=== PATIENT | female | born 1970 | race Two or more races ===

== ENCOUNTER 2017-03-18 17:07 | Inpatient (IN) | payer OTHER ==
[2017-03-18] MEDS ORDERED: methylPREDNISolone SOD SUCC 60 MG in SODIUM CHLORIDE 0.9% 100 ML IVPB SCH (20:30)
[2017-03-18] MEDS ORDERED: FUROSEMIDE 10 MG/ML 2 ML VIAL IV ONE (20:45)
[2017-03-18 21:00] LABS: Anion Gap 8 mmol/L; Blood Urea Nitrogen 9 mg/dL (7-17); Calcium 8.2 mg/dL (8.4-10.2); Carbon Dioxide 23 mmol/L (22-30); Chloride 104 mmol/L (98-107); Glucose 227 mg/dL (74-99); Non-African American GFR(MDRD) >60 (>60 ml/min/1.73 sqM); Potassium 3.8 mmol/L (3.5-5.1); Sodium 135 mmol/L (137-145)
[2017-03-18] MEDS: BUDESONIDE 0.5 MG/2 ML NEBU INHALATION SCH (21:04)
[2017-03-18 21:15] LABS: Basophils % (A) 0 %; CH 27.6; CHCM 32.8; Eosinophils % (A) 0 %; HCT 32.4 % (34.0-46.0); HDW 2.66; HGB 10.7 gm/dL (11.4-16.0); Luc # (Auto) 0.16; Luc % (Auto) 2; Lymphocytes # (A) 1.2 k/uL (1.0-4.8); Lymphocytes % (A) 16 %; MCH 27.8 pg (25.0-35.0); MCHC 32.9 g/dL (31.0-37.0); MCV 84.5 fL (80.0-100.0); Mean Platelet Volume 6.8; Monocytes # (A) 0.5 k/uL (0-1.0); Monocytes % (A) 6 %; Neutrophils # (A) 5.8 k/uL (1.3-7.7); Neutrophils % (A) 75 %; RBC 3.83 m/uL (3.80-5.40); RDW 13.7 % (11.5-15.5); WBC 7.7 k/uL (3.8-10.6)
[2017-03-18] MEDS: HEPARIN SODIUM,PORCINE 5,000 UNIT/ML 1 ML VIAL SQ SCH (21:27)
[2017-03-18] MEDS: methylPREDNISolone SOD SUCCI 125 MG/2 ML VIAL IV SCH ×2 (21:28→23:47)
[2017-03-18] MEDS: PANTOPRAZOLE 40 MG/10 ML VIAL IVP SCH (21:28)
--- NOTE | 2017-03-18 21:32 | XR ---
EXAMINATION TYPE: XR chest 1V portable DATE OF EXAM: 03/18/2017 COMPARISON: NONE HISTORY: Short of breath TECHNIQUE: Single frontal view of the chest is obtained. FINDINGS: There is bilateral extensive pulmonary alveolar edema. Trachea is midline. There is no sig n of a pneumothorax. I see no definite pleural effusion. IMPRESSION: Severe pulmonary edema that could relate to acute heart failure or RDS.
[2017-03-18] MEDS ORDERED: FUROSEMIDE 10 MG/ML 2 ML VIAL IV STA (22:27)
[2017-03-18 22:54] LABS: Creatine Kinase 31 U/L (30-135)
[2017-03-18 23:05] LABS: Creatine Kinase MB <0.2 ng/mL (0.0-2.4); Troponin I <0.012 ng/mL (0.000-0.034)
[2017-03-18] MEDS: ACETAMINOPHEN TAB 325 MG TAB PO PRN (23:28)
[2017-03-18] MEDS: AZITHROMYCIN 500 MG in SODIUM CHLORIDE 0.9% 250 ML IVPB SCH (23:28)
[2017-03-19 05:39] LABS: Glucose,Whole Blood 234 mg/dL (75-99)
[2017-03-19] MEDS: methylPREDNISolone SOD SUCCI 125 MG/2 ML VIAL IV SCH ×2 (05:56→12:17)
[2017-03-19 06:43] LABS: Basophils % (A) 0 %; CH 28.3; Eosinophils % (A) 0 %; HCT 35.3 % (34.0-46.0); HDW 2.65; HGB 11.6 gm/dL (11.4-16.0); Luc # (Auto) 0.04; Luc % (Auto) 1; Lymphocytes # (A) 0.5 k/uL (1.0-4.8); Lymphocytes % (A) 8 %; MCH 28.2 pg (25.0-35.0); MCHC 32.8 g/dL (31.0-37.0); MCV 85.9 fL (80.0-100.0); Mean Platelet Volume 7.6; Monocytes # (A) 0.1 k/uL (0-1.0); Monocytes % (A) 2 %; Neutrophils # (A) 6.1 k/uL (1.3-7.7); Neutrophils % (A) 90 %; RDW 14.5 % (11.5-15.5); WBC 6.8 k/uL (3.8-10.6); WBC (Perox) 7.28
[2017-03-19 06:55] LABS: Anion Gap 13 mmol/L; Blood Urea Nitrogen 13 mg/dL (7-17); Calcium 8.8 mg/dL (8.4-10.2); Carbon Dioxide 24 mmol/L (22-30); Chloride 104 mmol/L (98-107); Glucose 220 mg/dL (74-99); Non-African American GFR(MDRD) >60 (>60 ml/min/1.73 sqM); Potassium 3.8 mmol/L (3.5-5.1); Sodium 141 mmol/L (137-145)
[2017-03-19 07:32] LABS: Glucose,Whole Blood 219 mg/dL (75-99)
[2017-03-19 07:46] LABS: Glucose,Whole Blood 233 mg/dL (75-99)
--- NOTE | 2017-03-19 08:12 | XR ---
EXAMINATION TYPE: XR chest 2V DATE OF EXAM: 03/19/2017 COMPARISON: Prior chest x-ray 03/18/2017 HISTORY: Pulmonary edema TECHNIQUE: Frontal and lateral views of the chest are obtained. FINDINGS: Mixed interstitial and airspace disease is present within the lungs, some improvement in c onsolidation seen in the right upper lobe. Heart may be enlarged although patient is rotated which ma y accentuate the appearance. There is overlying cardiac leads. No evident pneumothorax or sizable eff usion. IMPRESSION: There may be some improvement in patient's airspace disease.
[2017-03-19] MEDS ORDERED: PANTOPRAZOLE 40 MG/10 ML VIAL IVP SCH (09:00)
[2017-03-19] MEDS: IPRATROPIUM-ALBUTEROL 3 ML NEB INHALATION PRN ×2 (09:21→20:51)
[2017-03-19] MEDS: BUDESONIDE 0.5 MG/2 ML NEBU INHALATION SCH (09:23)
[2017-03-19] MEDS: diphenhydrAMINE 50 MG/ML 1 ML VIAL IVP PRN (11:33)
[2017-03-19] MEDS ORDERED: INSPUCOR MISCELLANE PRN (11:51)
[2017-03-19] MEDS ORDERED: INSULIN PUMP BASAL RATES 1 EACH MISC MISCELLANE PRN (11:51)
[2017-03-19] MEDS ORDERED: INSULIN LISPRO (humaLOG) 300 UNIT/3 ML VIAL SQ PRN (11:51)
[2017-03-19] MEDS ORDERED: INSULIN PUMP ACTIVE INSULIN 1 EACH MISC MISCELLANE PRN (11:51)
[2017-03-19] MEDS ORDERED: INSULIN PUMP TARGET GLUCOSE 1 EACH MISC MISCELLANE PRN (11:51)
[2017-03-19] MEDS: cefTRIAXone 2,000 MG in SODIUM CHLORIDE 0.9% 100 ML IVPB SCH (11:53)
[2017-03-19] MEDS: HEPARIN SODIUM,PORCINE 5,000 UNIT/ML 1 ML VIAL SQ SCH ×2 (11:53→20:32)
[2017-03-19] MEDS: DOCUSATE 100 MG CAP PO SCH ×2 (11:53→20:32)
[2017-03-19 11:57] LABS: Glucose,Whole Blood 320 mg/dL (75-99)
[2017-03-19] MEDS: PANTOPRAZOLE 40 MG/10 ML VIAL IVP SCH (12:17)
[2017-03-19] MEDS: POLYETHYLENE GLYCOL 3350 17 GM POWD.PACK PO SCH (12:17)
[2017-03-19] MEDS ORDERED: INSULIN REGULAR BOLUS (FROM DRIP BAG) IV ONE (12:20)
[2017-03-19] MEDS ORDERED: INSULIN PUMP MEAL BOLUS 1 UNIT MISC MISCELLANE SCH (12:30)
[2017-03-19 13:12] LABS: Hemoglobin A1C 7.3 % (4.2-6.1)
[2017-03-19 13:24] VITALS: BMI 36.9
[2017-03-19] MEDS: INSULIN REGULAR 100 UNIT in SODIUM CHLORIDE 0.9% 100 ML IV SCH ×2 (14:16→20:37)
[2017-03-19] MEDS: INSULIN LISPRO (humaLOG) 300 UNIT/3 ML VIAL SQ SCH ×2 (14:18→17:56)
--- NOTE | 2017-03-19 14:21 | US ---
EXAMINATION TYPE: US venous doppler duplex LE BI DATE OF EXAM: 03/19/2017 1:55 PM COMPARISON: NONE CLINICAL HISTORY: R/O DVT; Pneumonia SIDE PERFORMED: Bilateral TECHNIQUE: The lower extremity deep venous system is examined utilizing real time linear array sonog deidra with graded compression, doppler sonography and color-flow sonography. VESSELS IMAGED: Common Femoral Vein Deep Femoral Vein Greater Saphenous Vein * Femoral Vein Popliteal Vein Small Saphenous Vein * Proximal Calf Veins (* superficial vessels) Right Leg: Negative for DVT Left Leg: Negative for DVT IMPRESSION: Grayscale, color doppler, spectral doppler imaging performed of the deep veins of the lo wer extremities. There is normal flow, compressibility, vascular waveforms bilaterally. No evident deep venous arthrosis at or above the knees.
--- NOTE | 2017-03-19 14:23 | P.CNPUL ---
History of Present Illness Consult date: 03/19/17 Requesting physician: Yaya Colindres Reason for consult: dyspnea, abnormal CXR/CT Chief complaint: Shortness of breath, cough, fatigue History of present illness: This is a very pleasant 46-year-old female patient who follows with Micaela Proctor, nurse practitioner with Dr. Mar as her primary healthcare provider. She has a history of obstructive sleep apnea utilizing CPAP, diabetes mellitus, hyperlipidemia, depression. On 03/15/2017 she had undergone a uterine ablation. After that she had not felt hot quite back to normal. She thought it was due to the procedure. She states then developed increasing shortness of breath cough and congestion. She was quite fatigued and weak. She developed chills as well. She presented to [facility] for the same. She was subsequent transferred here yesterday with continued symptoms. Her chest x- ray showed bilateral infiltrates. She was trialed with Lasix without significant improvement. In consultation today she states she did have symptoms similar to suspected aspiration pneumonia. Her proBNP was 400 no prior history of heart disease. Troponin negative. She has been treated with ceftriaxone and azithromycin. No leukocytosis. Currently afebrile. She is seen today in consultation on the selective care unit. She was transferred up here from the regular medical floor last evening. She was quite dyspneic on minimal exertion, even with conversation. She is requiring 6 L of high flow nasal cannula to maintain O2 saturations in the 90s. Review of Systems 14 point review of system was conducted. All negative other than as mentioned in the HPI. 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 past broken leg -cno sx-casted only, uterine fibroids, calcifications in rt breast-had sx -stated has a marker in place. History of Any Multi-Drug Resistant Organisms: None Reported Past Surgical History: Ablation, Tubal Ligation Additional Past Surgical History / Comment(s): uterine ablation, rt knee sx for cyst, rt breast sx for calcification-has marker Past Anesthesia/Blood Transfusion Reactions: No Reported Reaction Past Psychological History: Depression Additional Psychological History / Comment(s): pt stated she is being treated for depression-takes cymbalta. "feels well maintained be her meds". pt is independant. lives with her spouse in 2 story home that has 3 porch steps. pets : 1 cat. no outside services recieved. 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 Smoking Status: Never smoker Past Alcohol Use History: None Reported Past Drug Use History: None Reported - Past Family History Father Family Medical History: CVA/TIA Additional Family Medical History / Comment(s): djd Mother Family Medical History: Cancer, Congestive Heart Failure (CHF), COPD, Coronary Artery Disease (CAD) Additional Family Medical History / Comment(s): breast cancer-lynn masectomy Medications and Allergies Home Medications Medication Instructions Recorded Confirmed Type Atorvastatin Calcium [Lipitor] 10 mg PO DAILY 03/18/17 03/18/17 History Cyanocobalamin [Vitamin B-12] 500 mcg PO HS 03/18/17 03/18/17 History DULoxetine HCL [Cymbalta] 60 mg PO DAILY 03/18/17 03/18/17 History Ibuprofen [Motrin] 400 mg PO Q4H PRN 03/18/17 03/18/17 History Insulin Glulisine (For Pump) 0.01 units SQ-PUMP CONTINUOUS 03/18/17 03/18/17 History [Apidra (For Pump)] Melatonin 6 mg PO HS 03/18/17 03/18/17 History Allergies Allergy/AdvReac Type Severity Reaction Status Date / Time cephalexin [From Keflex] Allergy Swelling Verified 03/18/17 20:24 ciprofloxacin [From Cipro] Allergy Rash/Hives Verified 03/18/17 20:24 clindamycin Allergy Swelling Verified 03/18/17 20:24 floxacillin Allergy Rash/Hives Verified 03/18/17 20:24 Influenza Virus Vaccines Allergy Dyspnea Verified 03/18/17 20:24 lomefloxacin [From Maxaquin] Allergy Rash/Hives Verified 03/18/17 20:24 Penicillins Allergy Swelling Verified 03/18/17 20:24 vancomycin Allergy Rash/Hives Verified 03/18/17 20:24 hydromorphone [From Dilaudid] AdvReac migraine Verified 03/18/17 20:24 Physical Exam Vitals: Vital Signs Temp Pulse Pulse Resp BP Pulse Ox 03/19/17 09:39 70 03/19/17 09:26 66 03/19/17 08:33 97 F L 90 16 120/73 95 03/19/17 04:00 97.5 F L 80 16 115/68 93 L 03/19/17 00:00 96.8 F L 89 20 121/76 03/18/17 23:00 97.4 F L 98 16 126/67 95 03/18/17 21:00 16 03/18/17 19:30 99.3 F 99 16 122/64 89 L Intake and Output 03/18/17 03/19/17 03/19/17 22:59 06:59 14:59 Intake Total 250 236 Output Total 1000 Balance -750 236 Intake: Intake, IV Titration 250 Amount Azithromycin 500 mg In 250 Sodium Chloride 0.9% 250 ml @ 125 mls/hr IVPB Q[facility]H [facility] Rx#:[id number] Oral 236 Output: Urine 1000 Other: Voiding Method Toilet Bedside Commode # Voids 1 Weight 103.5 kg 100.8 kg 100.8 kg Patient Weight 03/20/17 06:59 Weight 100.8 kg GENERAL EXAM: Alert, fairly comfortable in no apparent distress. HEAD: Normocephalic. EYES: Normal reaction of pupils, equal size. NOSE: Clear with pink turbinates. THROAT: There is crowding the posterior pharynx. No erythema or exudates. NECK: Short. No masses, no JVD. CHEST: No chest wall deformity. LUNGS: Equal air entry with few scattered rhonchi, crackles in the bases.. CVS: S1 and S2 normal with no audible murmurs, regular rhythm. ABDOMEN: No hepatosplenomegaly, normal bowel sounds, no guarding or rigidity. SPINE: No scoliosis or deformity SKIN: No rashes CENTRAL NERVOUS SYSTEM: No focal deficits, tone is normal in all 4 extremities. Extremities: There is no peripheral edema. No clubbing, no cyanosis. Peripheral pulses are intact. Results - Laboratory Findings CBC and BMP: 03/19/17 06:22 03/19/17 06:22 Abnormal lab findings: Abnormal Labs 03/18/17 03/18/17 03/18/17 19:53 20:30 20:30 Hgb 10.7 L Hct 32.4 L Lymphocytes # Sodium 135 L Glucose 227 H POC Glucose (mg/dL) 233 H Hemoglobin A1c Calcium 8.2 L 03/19/17 03/19/17 03/19/17 05:38 06:22 06:22 Hgb Hct Lymphocytes # 0.5 L Sodium Glucose 220 H POC Glucose (mg/dL) 234 H Hemoglobin A1c Calcium 03/19/17 03/19/17 03/19/17 06:22 07:30 11:56 Hgb Hct Lymphocytes # Sodium Glucose POC Glucose (mg/dL) 219 H 320 H Hemoglobin A1c 7.3 H Calcium - Diagnostic Findings Chest x-ray: image reviewed Assessment and Plan Plan: Impression: #1 Aspiration pneumonia suspected following recent procedure with anesthesia. #2 Acute hypoxic respiratory failure secondary to above. #3 Obstructive sleep apnea utilizing CPAP. #4 Hyperlipidemia. #5 Diabetes mellitus. #6 History of depression. Plan: The patient was seen and evaluated by Dr. Abreu. Her chest x-ray and labs were reviewed. We do feel this is mostly in abnormalities of possible aspiration pneumonia versus congestive heart failure. She remains on antibiotics in the form of ceftriaxone and azithromycin. We will continue with bronchodilators and Pulmicort inhalations. She remains on IV Solu-Medrol. We'll continue with heparin for DVT prophylaxis and Protonix for GI prophylaxis. We will continue to follow and make further recommendations based on her clinical status. Time with Patient: Greater than 30
[2017-03-19 14:30] LABS: Glucose,Whole Blood 433 mg/dL (75-99)
[2017-03-19 15:17] LABS: Glucose,Whole Blood 434 mg/dL (75-99)
[2017-03-19 15:53] LABS: Glucose,Whole Blood 327 mg/dL (75-99)
[2017-03-19 16:43] LABS: Glucose,Whole Blood 232 mg/dL (75-99)
[2017-03-19 16:43] LABS: Glucose,Whole Blood 251 mg/dL (75-99)
[2017-03-19] MEDS: methylPREDNISolone SOD SUCCI 40 MG/ML 1 ML VIAL IV SCH ×2 (17:57→23:09)
[2017-03-19 18:14] LABS: Glucose,Whole Blood 157 mg/dL (75-99)
[2017-03-19 20:08] LABS: Glucose,Whole Blood 159 mg/dL (75-99)
[2017-03-19] MEDS: MELATONIN 3 MG TABLET PO SCH (20:32)
[2017-03-19] MEDS: CYANOCOBALAMIN 500 MCG TAB PO SCH (20:32)
[2017-03-19] MEDS: ACETAMINOPHEN TAB 325 MG TAB PO PRN (20:36)
[2017-03-19] MEDS: FORMOTEROL FUMARATE 20 MCG/2 ML NEBU INHALATION SCH (20:50)
[2017-03-19] MEDS: BUDESONIDE 1 MG/2 ML NEBU INHALATION SCH (20:51)
[2017-03-19 21:59] LABS: Glucose,Whole Blood 135 mg/dL (75-99)
[2017-03-19] MEDS: AZITHROMYCIN 500 MG in SODIUM CHLORIDE 0.9% 250 ML IVPB SCH (23:08)
[2017-03-20 00:23] LABS: Glucose,Whole Blood 211 mg/dL (75-99)
[2017-03-20] MEDS: ACETAMINOPHEN TAB 325 MG TAB PO PRN (01:36)
[2017-03-20 02:12] LABS: Glucose,Whole Blood 200 mg/dL (75-99)
[2017-03-20 04:19] LABS: Glucose,Whole Blood 173 mg/dL (75-99)
[2017-03-20 06:18] LABS: Basophils % (A) 0 %; CH 28.3; CHCM 32.9; Eosinophils % (A) 0 %; HCT 32.3 % (34.0-46.0); HDW 2.71; HGB 10.5 gm/dL (11.4-16.0); Luc # (Auto) 0.14; Luc % (Auto) 1; Lymphocytes # (A) 1.1 k/uL (1.0-4.8); Lymphocytes % (A) 9 %; MCHC 32.5 g/dL (31.0-37.0); MCV 86.3 fL (80.0-100.0); Monocytes # (A) 0.4 k/uL (0-1.0); Monocytes % (A) 4 %; Neutrophils # (A) 10.2 k/uL (1.3-7.7); Neutrophils % (A) 86 %; RBC 3.75 m/uL (3.80-5.40); RDW 14.4 % (11.5-15.5); WBC 11.9 k/uL (3.8-10.6); WBC (Perox) 12.23
[2017-03-20] MEDS: methylPREDNISolone SOD SUCCI 40 MG/ML 1 ML VIAL IV SCH ×3 (06:23→17:24)
[2017-03-20 06:30] LABS: Anion Gap 9 mmol/L; Blood Urea Nitrogen 19 mg/dL (7-17); Calcium 8.6 mg/dL (8.4-10.2); Carbon Dioxide 27 mmol/L (22-30); Chloride 105 mmol/L (98-107); Glucose 164 mg/dL (74-99); Non-African American GFR(MDRD) >60 (>60 ml/min/1.73 sqM); Potassium 3.9 mmol/L (3.5-5.1); Sodium 141 mmol/L (137-145)
[2017-03-20 06:40] LABS: Glucose,Whole Blood 155 mg/dL (75-99)
[2017-03-20] MEDS: PANTOPRAZOLE 40 MG TABLET PO SCH (07:07)
[2017-03-20] MEDS: INSULIN LISPRO (humaLOG) 300 UNIT/3 ML VIAL SQ SCH ×3 (07:07→17:24)
[2017-03-20 08:10] LABS: Glucose,Whole Blood 295 mg/dL (75-99)
[2017-03-20] MEDS: ATORVASTATIN 10 MG TAB PO SCH (08:13)
[2017-03-20] MEDS: DULoxetine HCL 60 MG CAPSULE.DR PO SCH (08:13)
[2017-03-20] MEDS: HEPARIN SODIUM,PORCINE 5,000 UNIT/ML 1 ML VIAL SQ SCH ×2 (08:13→21:37)
[2017-03-20] MEDS: DOCUSATE 100 MG CAP PO SCH ×2 (08:13→21:37)
[2017-03-20] MEDS: POLYETHYLENE GLYCOL 3350 17 GM POWD.PACK PO SCH (08:13)
[2017-03-20] MEDS: cefTRIAXone 2,000 MG in SODIUM CHLORIDE 0.9% 100 ML IVPB SCH (08:21)
[2017-03-20] MEDS: FORMOTEROL FUMARATE 20 MCG/2 ML NEBU INHALATION SCH ×2 (09:00→19:22)
[2017-03-20] MEDS: BUDESONIDE 1 MG/2 ML NEBU INHALATION SCH ×2 (09:00→19:22)
[2017-03-20] MEDS: IPRATROPIUM-ALBUTEROL 3 ML NEB INHALATION PRN ×4 (09:00→19:22)
[2017-03-20 10:10] LABS: Glucose,Whole Blood 249 mg/dL (75-99)
[2017-03-20 12:04] LABS: Glucose,Whole Blood 183 mg/dL (75-99)
--- NOTE | 2017-03-20 13:04 | HP ---
DATE OF ADMISSION: 03/19/17 CHIEF COMPLAINT: Shortness of breath and cough and tiredness. HISTORY OF PRESENT ILLNESS: This 46-year-old woman with past medical history of diabetes, hypertension, hyperlipidemia, history of sleep apnea, history of heartburn, history of uterine ablation, history of depression, the patient had uterine ablation in [place] and two days later the patient started to have cough and sputum. The patient had increasing shortness of breath. The patient went to [facility] and because of lack of improvement and suspicion of ARDS the patient was transferred to [facility] for further evaluation and treatment. There is no history of fever, rigors, chills. No history of headache, loss of consciousness or seizures. NT proBNP was done which showed it was 436. Chest x-ray showed evidence of pneumonia versus CHF. The patient was admitted to the hospital for further evaluation and treatment. Venous Doppler showed normal flow. Past medical history of diabetes, hypertension, hyperlipidemia, history of sleep apnea, history of ablation, history of depression. Medications prior to admission are: Home medications are: 1. Melatonin 6 mg q.h.s. 2. Insulin pump with Epidra. 3. Motrin 400 mg. 4. Cymbalta. 5. Vitamin B 500 mcg. 6. Lipitor 10 mg po daily. ALLERGIES: CEFLEXIN, CLINDAMYCIN, FLOXACIN, INFLUENZA VIRUS VACCINE, PENICILLIN, VANCOMYCIN, DILAUDID. FAMILY HISTORY: History of CVA/TIA and DJD in the family. SOCIAL HISTORY: No history of smoking and no history of alcohol intake. REVIEW OF SYSTEMS: HEENT: No diminished vision. No diminished hearing. Cardiovascular system: No angina or palpitations. Respiratory: No cough or hemoptysis. GI: No nausea or vomiting. : No dysuria. Nervous system: No numbness or weakness. Allergy/Immunology: No asthma or hayfever. Musculoskeletal: As mentioned earlier. Hematology/oncology: No history of anemia. Endocrine: No history of diabetes or hypothyroidism. Constitutional : As mentioned earlier. Dermatology: Negative. Rheumatology: Negative. Psychiatry: As mentioned earlier. PHYSICAL EXAMINATION: Alert and oriented times three. Pulse 94. Blood pressure 119/67. Respiratory rate 12, temperature 97.7. Pulse ox 94% on 2 L. HEENT: Conjunctivae normal. NECK: No JVD. Cardiovascular: S1, S2 normal. Respiratory: Breath sounds diminished at the bases. Scattered rhonchi and expiratory wheezing. Crackles. Abdomen is soft. Nontender. No mass palpable. Legs: No edema. No swelling. Nervous system: Higher functions as mentioned earlier. Moves all four limbs. No focal deficits. Lymphatics: No lymph nodes palpable in the neck, axillae and groin. SKIN: No ulcer, rash or bleeding. LABS: WBC 6.8, hemoglobin 11.7. Sodium 140. Potassium 3.8. ASSESSMENT: 1. Bilateral pneumonia, possible aspiration. 2. Rule out congestive heart failure. 3. Acute hypoxic respiratory failure. 4. History of obstructive sleep apnea. 5. History of recent uterine ablation. 6. Diabetes, on insulin pump. 7. Hyperlipidemia. 8. History of depression. 9. Obesity, body mass index 37. RECOMMENDATIONS AND DISCUSSION: In this 46 -year-old woman who presented with multiple complex medical issues, we will monitor the patient closely. Continue current medications. Continue symptomatic treatment. Otherwise, at this time, I recommend broad spectrum IV antibiotics. Bronchodilators. I would also recommend pulmonary consultation. DVT prophylaxis. Guarded prognosis. Further recommendations to follow. IV steroids also initiated. Continue with insulin IV drip. MTDD
[2017-03-20 14:36] LABS: Glucose,Whole Blood 270 mg/dL (75-99)
[2017-03-20 16:58] LABS: Glucose,Whole Blood 215 mg/dL (75-99)
[2017-03-20 18:24] LABS: Glucose,Whole Blood 319 mg/dL (75-99)
[2017-03-20] MEDS: INSULIN REGULAR 100 UNIT in SODIUM CHLORIDE 0.9% 100 ML IV SCH (18:27)
[2017-03-20 20:43] LABS: Glucose,Whole Blood 246 mg/dL (75-99)
--- NOTE | 2017-03-20 20:58 | PN ---
This is a very pleasant 46-year-old female we saw yesterday with a diagnosis of probable aspiration pneumonia following a procedure utilizing conscious sedation. Acute hypoxemic respiratory failure, sleep apnea syndrome, hyperlipidemia, diabetes and depression. The patient is doing much better today , feeling much better. Her breathing is much improved. Starting to mobilize mucous and phlegm. Temperature is 98, heart rate 84. Respiratory rate 20. Blood pressure 125/60. Mean 81. Room air saturation 91%. On a couple of L she is 96%. Looks much more comfortable today. HEENT examination is grossly unremarkable. Mucous membranes are moist. No oral lesions. Neck is supple. Full range of motion. No adenopathy or thyromegaly. Neck veins are flat. Cardiovascular examination reveals regular rhythm and rate. Heart rate 80. No murmur. Lungs reveal coarse rhonchi. Breath sounds are diminished. A few crackles noted. No wheezes. Abdomen is soft. Bowel sounds are heard. Extremities are intact. No cyanosis, clubbing or edema. Skin without rash. Lab data is reviewed. White count 11.9. Hemoglobin 10.5. Hematocrit 32.3. Platelet count 379,000. Sodium, and potassium, chloride, CO2 all normal. BUN and creatinine were 19 and 0.7. NT-pro-BNP was normal. Microbiology currently is pending or negative. Chest x-ray was seen on the fourth. It has not been repeated. We will repeat it tomorrow morning. All medications are reviewed. ASSESSMENT: 1. Probable aspiration pneumonia following a surgical procedure where the patient had unconscious sedation and general anesthesia. 2. Acute hypoxemic respiratory failure, improved. 3. Sleep apnea syndrome, currently on CPAP. 4. History of hyperlipidemia. 5. History of diabetes. 6. History of depression. PLAN: Plan on doing a chest x-ray in the morning. Medications are reviewed. Everything seems appropriate. No additional recommendations are made. Prognosis is guarded. MTDD
[2017-03-20] MEDS: CYANOCOBALAMIN 500 MCG TAB PO SCH (21:37)
[2017-03-20] MEDS: MELATONIN 3 MG TABLET PO SCH (21:37)
[2017-03-20] MEDS: AZITHROMYCIN 500 MG TAB PO SCH (21:49)
[2017-03-20 22:30] LABS: Glucose,Whole Blood 160 mg/dL (75-99)
[2017-03-21 00:48] LABS: Glucose,Whole Blood 166 mg/dL (75-99)
[2017-03-21] MEDS: methylPREDNISolone SOD SUCCI 40 MG/ML 1 ML VIAL IV SCH ×2 (01:24→06:57)
[2017-03-21 02:55] LABS: Glucose,Whole Blood 151 mg/dL (75-99)
[2017-03-21 04:55] LABS: Glucose,Whole Blood 167 mg/dL (75-99)
[2017-03-21 06:31] LABS: Basophils % (A) 0 %; CH 27.6; CHCM 32.5; Eosinophils % (A) 0 %; HCT 33.5 % (34.0-46.0); HDW 2.76; HGB 10.8 gm/dL (11.4-16.0); Luc # (Auto) 0.11; Luc % (Auto) 1; Lymphocytes # (A) 1.2 k/uL (1.0-4.8); Lymphocytes % (A) 11 %; MCH 27.6 pg (25.0-35.0); MCHC 32.3 g/dL (31.0-37.0); MCV 85.4 fL (80.0-100.0); Mean Platelet Volume 7.4; Monocytes # (A) 0.4 k/uL (0-1.0); Monocytes % (A) 4 %; Neutrophils # (A) 8.6 k/uL (1.3-7.7); Neutrophils % (A) 84 %; RBC 3.92 m/uL (3.80-5.40); RDW 13.7 % (11.5-15.5); WBC 10.3 k/uL (3.8-10.6); WBC (Perox) 10.79
[2017-03-21 06:34] LABS: Glucose,Whole Blood 166 mg/dL (75-99)
[2017-03-21 06:51] LABS: Anion Gap 7 mmol/L; Blood Urea Nitrogen 18 mg/dL (7-17); Calcium 8.8 mg/dL (8.4-10.2); Carbon Dioxide 25 mmol/L (22-30); Chloride 106 mmol/L (98-107); Glucose 149 mg/dL (74-99); Non-African American GFR(MDRD) >60 (>60 ml/min/1.73 sqM); Potassium 4.3 mmol/L (3.5-5.1); Sodium 138 mmol/L (137-145)
--- NOTE | 2017-03-21 06:58 | XR ---
EXAMINATION TYPE: XR chest 2V DATE OF EXAM: 03/21/2017 HISTORY: pneumonia. REFERENCE: Previous study dated 03/19/2017. FINDINGS: The heart is mildly enlarged. There is vascular congestion. There is improving edema. There are small, bilateral effusions. IMPRESSION: IMPROVING CHANGES OF CONGESTIVE HEART FAILURE.
[2017-03-21] MEDS: INSULIN LISPRO (humaLOG) 300 UNIT/3 ML VIAL SQ SCH ×3 (07:07→17:27)
[2017-03-21] MEDS: PANTOPRAZOLE 40 MG TABLET PO SCH (07:07)
[2017-03-21 08:04] LABS: Glucose,Whole Blood 199 mg/dL (75-99)
[2017-03-21] MEDS: cefTRIAXone 2,000 MG in SODIUM CHLORIDE 0.9% 100 ML IVPB SCH (08:10)
[2017-03-21] MEDS: POLYETHYLENE GLYCOL 3350 17 GM POWD.PACK PO SCH (08:10)
[2017-03-21] MEDS: DULoxetine HCL 60 MG CAPSULE.DR PO SCH (08:10)
[2017-03-21] MEDS: HEPARIN SODIUM,PORCINE 5,000 UNIT/ML 1 ML VIAL SQ SCH ×2 (08:10→21:39)
[2017-03-21] MEDS: DOCUSATE 100 MG CAP PO SCH ×2 (08:10→21:39)
[2017-03-21] MEDS: ATORVASTATIN 10 MG TAB PO SCH (08:10)
[2017-03-21] MEDS: FORMOTEROL FUMARATE 20 MCG/2 ML NEBU INHALATION SCH (08:15)
[2017-03-21] MEDS: BUDESONIDE 1 MG/2 ML NEBU INHALATION SCH (08:15)
[2017-03-21] MEDS: diphenhydrAMINE 50 MG/ML 1 ML VIAL IVP PRN (08:19)
--- NOTE | 2017-03-21 09:31 | PN ---
DATE OF SERVICE: 03/20/2017 This 46-year-old woman was admitted with bilateral pneumonia. Thought to have either gram negative or aspiration pneumonia. The patient had recent uterine ablation elsewhere. The patient is on broad spectrum IV antibiotics. The patient is feeling slightly better today. The 2D echo final report is pending at this time. Otherwise, the BNP is only 436. Troponins are negative. The blood sugar is elevated. PAST MEDICAL HISTORY: Reviewed. REVIEW OF SYSTEMS: CARDIOVASCULAR: No angina. RESPIRATORY: As mentioned earlier. GI: No nausea. : As mentioned earlier. NERVOUS SYSTEM: No numbness or weakness. Current medications reviewed and include: 1. Tylenol 650 q6h p.r.n. 2. DuoNeb q.i.d. 3. Lipitor 10 mg a day. 4. Zithromax 250 mg a day. 5. Pulmicort 1 mg b.i.d. 6. Rocephin 1 gm a day. 7. Vitamin B12 ( ). 8. ( ) 9. Colace 100 mg. 10. Cymbalta 60 mg a day. 11. Perforomist 20 mcg b.i.d. 12. Heparin. 13. Melatonin. 14. Solu-Medrol 40 IV q6. 15. Protonix 40 mg a day. 16. MiraLAX. PHYSICAL EXAMINATION: The patient is alert and oriented x3. Pulse is 80, blood pressure 120/60, respirations 20, temperature 98 degrees, pulse ox 92% on room air. HEENT: Conjunctivae normal. NECK: No JVD. CARDIOVASCULAR: S1/S2. RESPIRATORY: Diminished breath sounds especially in the bases. A few scattered rhonchi and crackles. ABDOMEN: Soft, obese, nontender. LEGS: No edema. NERVOUS SYSTEM: Higher functions as mentioned. Moves all four limbs. No focal deficits. LYMPHATICS: No lymph node in neck or axillae. SKIN: No rash. LABS: WBC 11.8, hemoglobin 10.5. Glucose 270. ASSESSMENT: 1. Bilateral pneumonia, possible aspiration. 2. Acute hypoxic respiratory failure present on admission. 3. History of sleep apnea. 4. History of recent uterine ablation. 5. Diabetes mellitus type 2, was on insulin pump, now insulin drip. 6. Hyperlipidemia. 7. History of depression. 8. Obesity with body mass index of 37. RECOMMENDATIONS AND DISCUSSION: Recommend to continue current medication, continue to monitor, continue symptomatic treatment. Continue with broad spectrum IV antibiotics and bronchodilators. Monitor blood sugars closely. Closely follow with pulmonary. Guarded prognosis because of multiple complex medical issues. Further recommendations to follow. MTDD
[2017-03-21 10:27] LABS: Glucose,Whole Blood 219 mg/dL (75-99)
[2017-03-21] MEDS: IPRATROPIUM-ALBUTEROL 3 ML NEB INHALATION PRN ×2 (11:51→16:05)
[2017-03-21 12:24] LABS: Glucose,Whole Blood 168 mg/dL (75-99)
[2017-03-21 14:51] LABS: Glucose,Whole Blood 292 mg/dL (75-99)
[2017-03-21 16:05] LABS: Glucose,Whole Blood 207 mg/dL (75-99)
[2017-03-21] MEDS: INSULIN REGULAR 100 UNIT in SODIUM CHLORIDE 0.9% 100 ML IV SCH (16:10)
[2017-03-21 18:24] LABS: Glucose,Whole Blood 184 mg/dL (75-99)
[2017-03-21] MEDS: SYMBICORT 160-4.5 MCG INHALER INHALATION SCH (19:17)
[2017-03-21 20:17] LABS: Glucose,Whole Blood 231 mg/dL (75-99)
[2017-03-21] MEDS: CYANOCOBALAMIN 500 MCG TAB PO SCH (21:39)
[2017-03-21] MEDS: AZITHROMYCIN 500 MG TAB PO SCH (21:39)
[2017-03-21] MEDS: MELATONIN 3 MG TABLET PO SCH (21:39)
[2017-03-21] MEDS ORDERED: INSULIN LISPRO (humaLOG) 300 UNIT/3 ML VIAL SQ PRN (22:04)
[2017-03-21] MEDS ORDERED: INSPUCOR MISCELLANE PRN (22:04)
[2017-03-21] MEDS ORDERED: INSULIN PUMP BASAL RATES 1 EACH MISC MISCELLANE PRN (22:04)
[2017-03-21 22:13] LABS: Glucose,Whole Blood 109 mg/dL (75-99)
[2017-03-22 02:09] LABS: Glucose,Whole Blood 94 mg/dL (75-99)
[2017-03-22 03:09] VITALS: TEMP 97.4
[2017-03-22 05:52] LABS: Glucose,Whole Blood 66 mg/dL (75-99)
[2017-03-22] MEDS: PANTOPRAZOLE 40 MG TABLET PO SCH (06:43)
[2017-03-22 06:47] LABS: Glucose,Whole Blood 108 mg/dL (75-99)
[2017-03-22 06:55] LABS: HCT 35.5 % (34.0-46.0); HGB 11.5 gm/dL (11.4-16.0); MCV 85.7 fL (80.0-100.0); RBC 4.15 m/uL (3.80-5.40); WBC 10.5 k/uL (3.8-10.6); WBC (Perox) 10.91
[2017-03-22 06:56] LABS: Basophils # (A) 0.1 k/uL (0-0.2); Basophils % (A) 1 %; CH 27.6; CHCM 32.4; Eosinophils # (A) 0.1 k/uL (0-0.7); Eosinophils % (A) 1 %; HDW 2.72; Luc # (Auto) 0.18; Luc % (Auto) 2; Lymphocytes # (A) 4.1 k/uL (1.0-4.8); Lymphocytes % (A) 39 %; MCH 27.7 pg (25.0-35.0); MCHC 32.3 g/dL (31.0-37.0); Mean Platelet Volume 6.8; Monocytes # (A) 0.7 k/uL (0-1.0); Monocytes % (A) 6 %; Neutrophils # (A) 5.5 k/uL (1.3-7.7); Neutrophils % (A) 52 %; RDW 13.6 % (11.5-15.5)
[2017-03-22 07:06] LABS: Anion Gap 9 mmol/L; Blood Urea Nitrogen 17 mg/dL (7-17); Calcium 8.8 mg/dL (8.4-10.2); Carbon Dioxide 28 mmol/L (22-30); Chloride 105 mmol/L (98-107); Glucose 52 mg/dL (74-99); Non-African American GFR(MDRD) >60 (>60 ml/min/1.73 sqM); Potassium 3.7 mmol/L (3.5-5.1); Sodium 142 mmol/L (137-145)
[2017-03-22] MEDS ORDERED: INSULIN PUMP MEAL BOLUS 1 UNIT MISC MISCELLANE SCH (07:30)
[2017-03-22] MEDS: SYMBICORT 160-4.5 MCG INHALER INHALATION SCH (08:00)
[2017-03-22] MEDS: cefTRIAXone 2,000 MG in SODIUM CHLORIDE 0.9% 100 ML IVPB SCH (08:42)
[2017-03-22] MEDS: DOCUSATE 100 MG CAP PO SCH (08:43)
[2017-03-22] MEDS: ATORVASTATIN 10 MG TAB PO SCH (08:44)
[2017-03-22] MEDS: DULoxetine HCL 60 MG CAPSULE.DR PO SCH (08:44)
[2017-03-22] MEDS: HEPARIN SODIUM,PORCINE 5,000 UNIT/ML 1 ML VIAL SQ SCH (08:45)
[2017-03-22] MEDS: POLYETHYLENE GLYCOL 3350 17 GM POWD.PACK PO SCH (08:46)
[2017-03-22] MEDS: ACETAMINOPHEN TAB 325 MG TAB PO PRN (08:50)
[2017-03-22] MEDS: INSULIN PUMP MEAL BOLUS 1 UNIT MISC MISCELLANE SCH ×2 (08:55→13:09)
[2017-03-22] MEDS ORDERED: predniSONE 10 MG TAB PO SCH (09:00)
[2017-03-22] MEDS: diphenhydrAMINE 50 MG/ML 1 ML VIAL IVP PRN (09:09)
--- NOTE | 2017-03-22 10:04 | PN ---
This is a very pleasant 46-year-old female that we saw 2 days ago in consultation. We think she probably had aspiration pneumonia following a conscious sedation procedure. Anyway, the patient continues to improve hoping to be discharged tomorrow. Chest x-ray is improved. She has a history of acute hypoxemic respiratory failure, sleep apnea syndrome, hyperlipidemia, diabetes and depression. Again, doing much better today. Coughing a bit. Producing some phlegm, not a lot. Is able to walk the hallways without oxygen therapy. Not coughing up or bringing up any phlegm or much phlegm at all. No fever, chills. No nausea, vomiting or diarrhea. Current vital signs are stable. Temperature 97.6, heart rate 73, respiratory rate 20, blood pressure 145/87, mean 106, room air saturation 94%. Appears in no acute distress. HEENT examination is grossly unremarkable. Unchanged from yesterday. No oral lesions. NECK: Supple. Full range of motion. No adenopathy or thyromegaly. Cardiovascular examination reveals regular rhythm and rate. Heart rate is 73. S1 and S2 normal. There is no heard murmur. Lungs reveal improve breath sounds. A few scattered coarse rhonchi. Breath sounds are improved though yesterday. Breath sounds are equal bilaterally. No wheezes or crackles. ABDOMEN: Soft. Bowel sounds are heard. No masses or tenderness. Extremities are intact. No cyanosis, clubbing or edema. Skin without rash. Labs are reviewed. White count 10.3, hemoglobin 10.8, hematocrit 33.5, platelet count 320,000. Sodium, potassium, chloride, CO2 all normal. BUN and creatinine were 18 and 0.71. She did have a chest x-ray from the 6th, which is today compared to a prior x-ray show improving of diffuse bilateral infiltrates. Medications are reviewed. ASSESSMENT: 1. Probable aspiration pneumonia following a surgical procedure where the patient had unconscious sedation/general anesthesia. 2. Acute hypoxemic respiratory failure, much improved clinically and radiographically. 3. Sleep apnea syndrome, currently on CPAP. 4. History of hyperlipidemia. 5. Diabetes. 6. Depression. PLAN: Microbiology thus far negative. Labs and x-rays have been reviewed. Medications are reviewed. She is currently on Zithromax and ceftriaxone. She is also on updrafts. She seems to be significantly improved. Will continue to follow. Prognosis is guarded though. No additional recommendations are made. MTDD
--- NOTE | 2017-03-22 11:46 | PN ---
DATE OF SERVICE: 03/21/2017 This 46-year-old woman is admitted with bilateral pneumonia, being closely monitored. The patient is on broad spectrum IV antibiotics. Clinically, patient is feeling better. Dr. Abreu is following the patient closely. The repeat chest x-ray done today presently reviewed shows significant improvement. No chest pain or palpitation, no fever. On exam, alert and oriented x3. Pulse 73, blood pressure 145/87, respirations 20 , temperature is 97.6, pulse ox 94% on room air. HEENT: Conjunctivae normal. NECK: No jugular venous distension. RESPIRATORY: Breath sounds diminished at the bases. A few scattered rhonchi. ABDOMEN: Bowel sounds present. Soft, nontender. LEGS: No edema, no swelling. NERVOUS SYSTEM: No focal deficits. LABS: Hemoglobin 10.8, Accu-Cheks noted. ASSESSMENT: 1. Bilateral pneumonia, possibly aspiration. 2. Acute hypoxic respiratory failure present on admission. 3. History of sleep apnea. 4. History of recent uterine ablation. 5. Diabetes mellitus type2, was on insulin pump, now on insulin rip. 6. Hyperlipidemia. 7. History of depression. 8. Obesity, body mass index of 37. RECOMMENDATION: Recommend to continue with the monitoring and symptomatic treatment. Continue with the antibiotics, p.o. steroids, insulin pump may be restarted. Continue with the antibiotics. Closely follow, further recommendations to follow. MTDD
[2017-03-22 11:55] LABS: Glucose,Whole Blood 80 mg/dL (75-99)
[2017-03-22 12:02] VITALS: BP 130/62; PULSE 73; RESP 16
--- NOTE | 2017-03-22 15:43 | P.PN ---
Subjective 46-year-old female patient was seen in consultation by my associate for probable aspiration pneumonia. The patient was in a good state of health. She is known to have history of diabetes, depression, hyperlipidemia and sleep apnea. The patient underwent a WINE STEWARD/STEWARDESS procedure and following that she started having increased shortness of breath and she came in for an acute hypoxic respiratory failure. She was diagnosed having an aspiration pneumonia and she was placed on a combination of Rocephin and Zithromax. She is doing better. A chest x-ray showing improvement and the patient will be discharged home on oral Augmentin. No fever. No chills. No significant sputum production. Oxygen is improved significantly. No cervical leukocytosis. Chest x-ray showing improvement in the pulmonary infiltrates knowing that there is also a component of pulmonary vascular congestion on the chest x-ray. Doppler of the lower extremities was negative. Objective - Vital Signs Vital signs: Vital Signs Temp 97.4 F L 03/22/17 08:00 Pulse 73 03/22/17 08:00 Resp 16 03/22/17 12:00 BP 130/62 03/22/17 08:00 Pulse Ox 93 L 03/22/17 08:00 Intake & Output 03/21/17 03/22/17 03/22/17 18:59 06:59 18:59 Intake Total 332.702 25.609 180 Balance 332.702 25.609 180 Weight 104.5 kg Intake: IV 24 18 Insulin Regular 100 unit 24 18 In Sodium Chloride 0.9% 100 ml @ Titrate IV .Q0M IZAIAH Rx#:[id number] Intake, IV Titration 48.702 7.609 Amount Insulin Regular 100 unit 48.702 7.609 In Sodium Chloride 0.9% 100 ml @ Titrate IV .Q0M IZAIAH Rx#:[id number] Oral 260 180 Other: Voiding Method Toilet Bedside Commode # Voids 2 2 - Exam The patient appeared well nourished and normally developed. Vital signs as documented. Head exam is unremarkable. No scleral icterus or corneal arcus noted. Neck is without jugular venous distension, thyromegaly, or carotid bruits. Carotid upstrokes are brisk bilaterally. Lungs are clear to auscultation and percussion. Cardiac exam reveals the PMI to be normally sized and situated. Rhythm is regular. First and second heart sounds normal. No murmurs, rubs or gallops. Abdominal exam reveals normal bowel sounds, no masses , no organomegaly and no aortic enlargement. Extremities are nonedematous and both femoral and pedal pulses are normal. - Labs CBC & Chem 7: 03/22/17 06:00 03/22/17 06:00 Labs: Abnormal Lab Results - Last 24 Hours (Table) 03/21/17 03/21/17 03/21/17 Range/Units 16:02 18:23 20:16 Glucose (74-99) mg/dL POC Glucose (mg/dL) 207 H 184 H 231 H (75-99) mg/dL 03/21/17 03/22/17 03/22/17 Range/Units 22:12 05:51 06:00 Glucose 52 L (74-99) mg/dL POC Glucose (mg/dL) 109 H 66 L (75-99) mg/dL 03/22/17 Range/Units 06:46 Glucose (74-99) mg/dL POC Glucose (mg/dL) 108 H (75-99) mg/dL Assessment and Plan Plan: Assessment 1 acute pneumonia versus acute lung injury. Rule out aspiration. Rule out postoperative acute lung injury. Clinically the patient is improved. Oxidation is improved. Hemodynamically stable. She was discharged home on oral Augmentin. 2 uterine ablation, done under general anesthesia 3 obstructive sleep apnea 4 diabetes mellitus 5 hyperlipidemia 6 depression. Plan Patient is clinically stable. The patient should be able to get discharged home on a course of Augmentin. Outpatient follow-up on her lung status with a subsequent chest x-ray to make sure pulmonary infiltrates of completely recovered and the result. Patient is ambulating. Oxidation is improved. No other complaints otherwise. No chest pain. She is on insulin pump that needs to be restarted.
--- NOTE | 2017-03-22 16:18 | P.DS ---
Providers Date of admission: 03/18/17 19:52 Attending physician: Yaya Colindres Consults: 03/18/17 21:42 Consult Physician Urgent Consulting Provider: Beny Abreu Consult Reason/Comments: Shortness of breath, low O2 sat Do you want consulting provider notified?: Already Contacted Primary care physician: Stated None Hospital Course: This is a 46-year-old female who underwent a uterine ablation due to dysfunctional uterine bleeding patient was intubated at that time. Patient was to be discharged however was noted to have a fever and some difficulty breathing A chest x-ray thereafter was noted to show a pneumonic infiltrate patient was started on Rocephin and Zithromax and due to non-resolving features patient was triaged to our facility from [facility] Patient has currently been on antibiotics for about 5 days with Rocephin and Zithromax Today patient states that they are breathing is significantly improved denies having cough, fevers, nausea, vomiting, chest pain, difficulty breathing, abdominal pain patient was able to ambulate without much difficulty Physical exam today lungs good air movement no wheezing rhonchi or crackles Abdomen is soft nontender no organomegaly Chest regular rate and rhythm no murmurs appreciated Neuro no focal deficits noted Discharge diagnoses #1 pneumonia with some suspicion of aspiration Next number dysfunctional uterine bleeding #3 dyslipidemia #4 history of asthma Plan We'll discharge the patient on Augmentin patient does have multiple ALLERGIES recommended take Benadryl or Claritin depending on the time of the day discharged home Plan - Discharge Summary New Discharge Prescriptions: New Amoxic-Pot Clav 875-125Mg [Augmentin 875-125] 1 tab PO Q12HR #10 tablet predniSONE 20 mg PO DAILY #4 tab Continue Cyanocobalamin [Vitamin B-12] 500 mcg PO HS Melatonin 6 mg PO HS Insulin Glulisine (For Pump) [Apidra (For Pump)] 0.01 units SQ-PUMP CONTINUOUS Ibuprofen [Motrin] 400 mg PO Q4H PRN PRN Reason: Migraine Headache DULoxetine HCL [Cymbalta] 60 mg PO DAILY Atorvastatin Calcium [Lipitor] 10 mg PO DAILY Discharge Medication List Atorvastatin Calcium [Lipitor] 10 mg PO DAILY 03/18/17 [History] Cyanocobalamin [Vitamin B-12] 500 mcg PO HS 03/18/17 [History] DULoxetine HCL [Cymbalta] 60 mg PO DAILY 03/18/17 [History] Ibuprofen [Motrin] 400 mg PO Q4H PRN 03/18/17 [History] Insulin Glulisine (For Pump) [Apidra (For Pump)] 0.01 units SQ-PUMP CONTINUOUS 03/18/17 [History] Melatonin 6 mg PO HS 03/18/17 [History] Amoxic-Pot Clav 875-125Mg [Augmentin 875-125] 1 tab PO Q12HR #10 tablet [Rx] predniSONE 20 mg PO DAILY #4 tab 03/22/17 [Rx] Follow up Appointment(s)/Referral(s): Beny Abreu DO [Doctor of Osteopathic Medicine] - 1 Week Discharge Disposition: HOME SELF-CARE
[2017-03-22 16:55] LABS: Glucose,Whole Blood 127 mg/dL (75-99)
== END 2017-03-22 17:46 | disposition home or self-care (01) | DRG 177 ==
LOC: 4MS4W 19:52 → 6SEL 23:38
PROVIDERS: ADMIT Hospitalist; ATTEND Hospitalist
DX: J69.0 Pneumonitis due to inhalation of food and vomit (principal); J96.01 Acute respiratory failure with hypoxia; I10 Essential (primary) hypertension; E11.9 Type 2 diabetes mellitus without complications; E78.5 Hyperlipidemia, unspecified; N93.8 Other specified abnormal uterine and vaginal bleeding; J45.909 Unspecified asthma, uncomplicated; G47.33 Obstructive sleep apnea (adult) (pediatric); F32.9 Major depressive disorder, single episode, unspecified; H35.30 Unspecified macular degeneration; G40.909 Epilepsy, unspecified, not intractable, without status epilepticus; E66.9 Obesity, unspecified; Z68.37 Body mass index [BMI] 37.0-37.9, adult; Z79.4 Long term (current) use of insulin; Z79.899 Other long term (current) drug therapy; Z96.41 Presence of insulin pump (external) (internal); Z88.1 Allergy status to other antibiotic agents; Z88.5 Allergy status to narcotic agent; Z88.0 Allergy status to penicillin; Z88.7 Allergy status to serum and vaccine; Z82.5 Family history of asthma and other chronic lower respiratory diseases
CPT/HCPCS: 71010; 71020; 80048; 82550; 82553; 83036; 83605; 83880; 84484; 85025; 93306; 93970; 94640